=== PATIENT | male | born 1990 | race Caucasian/White ===

== ENCOUNTER 2019-10-14 11:55 | Emergency (ER) | payer SELFPAY ==
[2019-10-14 12:02] VITALS: BP 116/88; PULSE 88; RESP 18; TEMP 39.1; O2SAT 98
--- NOTE | 2019-10-14 12:50 | ED.GENADULT ---
HPI - General Adult General Chief complaint: Upper Respiratory Infection Stated complaint: chills/cough Time Seen by Provider: 10/14/19 12:50 Source: patient Mode of arrival: ambulatory Limitations: no limitations History of Present Illness HPI narrative: 28-year-old male patient resents to the [facility] with complaints of cold symptoms for the past 3 days. Patient states he has been running high fevers, body aches, pains and just overall not feeling good. Patient states he is been taking [id number] DayQuil for his symptoms. Patient states he did not get a flu shot this year. Patient states he knows he pretty much thinks he has the flu because he has been exposed recently. Patient states he is mainly here because he needs a work note to return to work. Related Data Home Medications Medication Instructions Recorded Confirmed No Home Medications 10/14/19 10/14/19 Allergies Allergy/AdvReac Type Severity Reaction Status Date / Time NKA Allergy Unknown Uncoded 02/19/03 13:13 Review of Systems Review of Systems: Narrative: CONSTITUTIONAL: Positive fever, body aches, chills, and sweats. EYES: Denies visual changes, redness, or discharge. ENT: Positive rhinorrhea, congestion, denies sore throat, or otalgia. CARDIOVASCULAR: Denies chest pain, palpitations, or edema. RESPIRATORY: Positive cough, denies dyspnea. GASTROINTESTINAL: Denies abdominal pain, nausea, vomiting, or diarrhea. GENITOURINARY: Denies dysuria or hematuria. SKIN: Denies rash or itching. MUSCULOSKELETAL: Denies back pain, joint pain, or myalgia. NEUROLOGIC: Denies headache, numbness, or weakness. PSYCHIATRIC: Denies anxiety or depression. PMFSH Comments At the time of my signature I agree with nursing past medical history, surgical, social, and family history. There is no relevant family history pertinent to the presenting complaint. Exam Narrative: Exam Narrative: GENERAL: Well-appearing, well-nourished, and in no acute distress. HEAD: Normocephalic, atraumatic. No tenderness noted to frontal maxillary sinuses on palpation. EYES: PERRLA and EOMI. ENT: Nares with erythema and edema noted bilaterally, no rhinorrhea or epistaxis. Mucous membranes moist. Posterior pharynx with some erythema but no tonsil enlargement no exudates or lesions present. There is some postnasal drip noted. Bilateral TMs are clear no erythema or foreign bodies in the canal. NECK: Supple. No lymphadenopathy CHEST: Clear to auscultation. No respiratory distress. HEART: Regular rate and rhythm. No murmur heard. Normal peripheral pulses. ABDOMEN: Soft, nontender, nondistended, normal active bowel sounds. EXTREMITIES: Normal range of motion. No edema. SKIN: Warm, dry, no rash. NEURO: No focal deficits. Alert and oriented x3. Course Vital Signs Vital signs: Vital Signs Temperature 39.1 C H 10/14/19 12:02 Pulse Rate 88 10/14/19 12:02 Respiratory Rate 18 10/14/19 12:02 Blood Pressure 116/88 10/14/19 12:02 Pulse Oximetry 98 10/14/19 12:02 Temperature 39.1 C H 10/14/19 12:54 Pulse Rate 88 10/14/19 12:02 Respiratory Rate 18 10/14/19 12:02 Blood Pressure 116/88 10/14/19 12:02 Pulse Oximetry 98 10/14/19 12:02 Vital signs reviewed. Medical Decision Making Differential Diagnosis Differential Diagnosis: Differential diagnosis: Allergic rhinitis, chronic sinusitis, tonsillitis, acute sinusitis, infectious mononucleosis, seasonal influenza, pertussis, diphtheria, meningococcal disease, viral syndrome, viral bronchitis, RSV. Cussed with patient that he most likely does have influenza. Discussed with him that I do not see a need to test him today since he is outside the window for antivirals anyway. Discussed with patient that since he does present today with a high fever we will need to continue to keep him out of work until he is fever free for 24 hours. Discussed with patient he can continue to treat his symptoms with [id number] medication
[2019-10-14 12:54] VITALS: TEMP 39.1
[2019-10-14] MEDS: ACETAMINOPHEN 500 MG TABLET 1000 MG PO (12:54)
[2019-10-14 13:20] VITALS: TEMP 39.1
== END 2019-10-14 13:00 | disposition home or self-care (01) ==
PROVIDERS: Emergency Provider Nurse Practitioner Family
DX: J06.9 Acute upper respiratory infection, unspecified (principal); R50.9 Fever, unspecified
CPT/HCPCS: 99202; A9270; G0463